=== PATIENT | female | born 1945 | race Caucasian/White ===

== ENCOUNTER 2019-10-07 07:21 | Day surgery (SDC) | payer MEDICARE, BC ==
[~2019-10-07] VITALS: Ht 167.6 cm; Wt 80.5 kg
[~2019-10-07 07:21] MED LIST: ASCO500C15 PO; ATEN25TA PO; CALC-995 PO; CHOL100046 PO; GABA-532 PO; LISI-643 PO; OMEP20TA23 PO; OXYB5TAB16 PO; PRAV20TA4 PO
[2019-10-07] MEDS ORDERED: diphenhydrAMINE 25mg capsule PO PRN (07:45)
[2019-10-07] MEDS ORDERED: normal saline 1,000 ML IV SCH (07:45)
[2019-10-07] MEDS ORDERED: LOSA50TA3 PO (08:10)
[2019-10-07 08:28] VITALS: BP 158/87
== END 2019-10-07 09:15 | disposition home or self-care (01) ==
LOC: SSTAY O 07:21
PROVIDERS: ATTEND Internal Medicine Cardiovascular Disease
DX: I44.7 Left bundle-branch block, unspecified (principal); Z53.8 Procedure and treatment not carried out for other reasons; R07.89 Other chest pain; Z79.899 Other long term (current) drug therapy
CPT/HCPCS: 93005; J7030

== ENCOUNTER 2019-10-21 07:40 | Day surgery (SDC) | payer MEDICARE, BC ==
[~2019-10-21] VITALS: Ht 167.6 cm; Wt 80.1 kg
[2019-10-21] VITALS (9 sets, daily range): BP systolic 147–176; BP diastolic 76–96
[~2019-10-21 07:40] MED LIST changes: -LISI-643 PO; +LOSA50TA3 PO
[2019-10-21] MEDS ORDERED: normal saline 1000ml 1,000 ML IV SCH (08:10)
[2019-10-21] MEDS ORDERED: diphenhydrAMINE 25mg capsule PO PRN (08:10)
[2019-10-21] MEDS ORDERED: midazolam 2 mg/2 ml injection ONE (08:56)
[2019-10-21] MEDS ORDERED: fentaNYL/PF 50MCG/1 ML 2ML syringe ONE (08:57)
[2019-10-21] MEDS ORDERED: LIDOcaine 1% (10mg/ml)w/preservative injection 20ml MDV ONE (08:57)
[2019-10-21] MEDS ORDERED: iohexol 350 MG/ML 50ML vial IV ONE (08:58)
[2019-10-21] MEDS ORDERED: iohexol 350MG/ML 100ml bottle IV ONE (08:58)
[2019-10-21 09:10] LABS: BASOPHILS % (AUTO) 0.1 % (0-1); EOSINOPHILS % (AUTO) 0 % (0-6); HEMATOCRIT 42.2 % (35.0-45.0); HEMOGLOBIN 14.5 g/dl (12.0-16.0); LYMPHOCYTES % (AUTO) 9.9 % (21-51); MEAN CORPUSCULAR HEMOGLOBIN 31.1 PG (27.0-31.0); MEAN CORPUSCULAR HGB CONC 34.2 g/dL (33.0-36.5); MEAN CORPUSCULAR VOLUME 90.8 FL (78-98); MEAN PLATELET VOLUME 8.6 FL (7.4-10.4); MONOCYTES # (AUTO) 0.6 X10'3 (0-0.9); MONOCYTES % (AUTO) 5.7 % (2-12); NEUTROPHILS # (AUTO) 8.9 X10'3 (1.8-7.7); NEUTROPHILS % (AUTO) 84.3 % (42-75); PLATELET COUNT 180 X10'3 (140-440); RED BLOOD COUNT 4.65 X10'6 (4.20-5.60); RED CELL DISTRIBUTION WIDTH 13.9 % (11.5-14.5); WHITE BLOOD COUNT 10.6 X10'3 (4.5-11.0)
[2019-10-21 09:14] LABS: ALBUMIN 4.5 G/DL (3.4-5.0); ANION GAP 6 (8-16); BLOOD UREA NITROGEN 17 MG/DL (7-18); BUN/CREATININE RATIO 19.5 (6.6-38.0); CALCIUM 9.7 MG/DL (8.5-10.1); CHLORIDE 103 MMOL/L (99-107); CREATININE 0.87 MG/DL (0.40-0.90); GLUCOSE 129 MG/DL (70-104); MAGNESIUM 2.4 MG/DL (1.5-2.4); POTASSIUM 3.4 MMOL/L (3.5-5.1); SODIUM 142 MMOL/L (135-145); TOTAL CARBON DIOXIDE 33.5 MMOL/L (24-32); eGFR 64 ML/MIN
[2019-10-21] MEDS ORDERED: nitroGLYCERIN-Tridil 50MG/D5W 250 ML IV ONE (09:38)
[2019-10-21] MEDS ORDERED: hydrALAZINE 20mg/ml inj. IV ONE (09:47)
[2019-10-21] MEDS ORDERED: acetaminophen 325mg tablet PO PRN (10:55)
[2019-10-21] MEDS ORDERED: ketorolac tromethamine 15mg/ml inj. IV ONE (10:55)
== END 2019-10-21 13:45 | disposition home or self-care (01) ==
LOC: SSTAY O 07:40
PROVIDERS: ATTEND Internal Medicine Cardiovascular Disease
DX: R94.39 Abnormal result of other cardiovascular function study (principal); I25.10 Atherosclerotic heart disease of native coronary artery without angina pectoris; Z79.899 Other long term (current) drug therapy; Z91.041 Radiographic dye allergy status
CPT/HCPCS: 36415; 80048; 83735; 85025; 85610; 93005; 93458; 99152; C1769; C1894; J0360; J1644; J1885; J2001; J2250; J3010; J7030; Q0163; Q9967; A4620; A6258; C1760; J3490

== ENCOUNTER 2024-07-03 08:08 | Outpatient (CLI) | payer MEDICARE, BC ==
[~2024-07-03 08:08] MED LIST changes: -ASCO500C15 PO; +ASCO500C18 PO; +LOSA-416 PO; -LOSA50TA3 PO; -OXYB5TAB16 PO; +OXYB5TAB21 PO
== END 2024-07-03 23:59 | disposition home or self-care (01) ==
LOC: VAS 08:08
PROVIDERS: ATTEND Physician Assistant
DX: R22.41 Localized swelling, mass and lump, right lower limb (principal); M79.604 Pain in right leg
CPT/HCPCS: 93971